=== PATIENT | male | born 1985 | race Caucasian/White ===

== ENCOUNTER → 2017-04-10 | Outpatient (CLI) | payer BC ==
[~2017-04-10] MED LIST: MULT-750 PO
== END ==
LOC: STAR 08:03
PROVIDERS: ATTEND Otolaryngology
DX: Z02.9 Encounter for administrative examinations, unspecified (principal)

== ENCOUNTER 2017-04-18 06:26 | Observation (INO) | payer BC ==
[~2017-04-18] VITALS: Ht 185.4 cm; Wt 95.5 kg
[2017-04-18] MEDS ORDERED: OXYMETAZOLINE NASAL SPRAY 0.05%, 15ML ONE (06:38)
[2017-04-18] MEDS ORDERED: LACTATED RINGERS 1,000 ML IV SCH ×2 (06:50→11:00)
[2017-04-18] MEDS ORDERED: LIDOCAINE 1%, 2ML ONE (06:52)
[2017-04-18 06:56] VITALS: BP 130/80
[2017-04-18] MEDS ORDERED: LIDOCAINE 1%, 2ML SQ PRN (07:30)
[2017-04-18] MEDS ORDERED: MIDAZOLAM 1 MG/ML, 2ML ONE (08:06)
[2017-04-18] MEDS ORDERED: FENTANYL PF 100 MCG/2ML ONE ×3 (08:06→09:29)
[2017-04-18] MEDS ORDERED: SUCCINYLCHOLINE 20 MG/ML, 10ML ONE (08:38)
[2017-04-18] MEDS ORDERED: DEXAMETHASONE 4 MG/ML, 1ML ONE (08:38)
[2017-04-18] MEDS ORDERED: PROPOFOL 10 MG/ML, 20ML ONE (08:38)
[2017-04-18] MEDS ORDERED: ROCURONIUM 10 MG/ML,10ML ONE (08:38)
[2017-04-18] MEDS ORDERED: ONDANSETRON 2MG/ML, 2ML ONE (09:29)
[2017-04-18] MEDS ORDERED: OXYcodone 5 MG/5 ML ORAL.SOL UDC ONE (09:29)
[2017-04-18] MEDS ORDERED: ACETAMINOPHEN 650 MG/20.3 ML UDC ONE (09:29)
[2017-04-18] MEDS ORDERED: DIAZEPAM 5 MG/ML, 2ML IVPush PRN (09:30)
[2017-04-18] MEDS ORDERED: HYDROmorphone 1 MG/ML, 1ML IV PRN (09:30)
[2017-04-18] MEDS ORDERED: ALBUTEROL SULFATE 2.5 MG/3 ML NPPB PRN (09:30)
[2017-04-18] MEDS ORDERED: hydrALAzine 20 MG/ML, 1ML IV PRN (09:30)
[2017-04-18] MEDS ORDERED: METOPROLOL 1 MG/ML, 5ML IV PRN (09:30)
[2017-04-18] MEDS ORDERED: LABETALOL 5MG/ML, 20ML IV PRN (09:30)
[2017-04-18] MEDS ORDERED: EPHEDRINE 50 MG/ML, 1ML IVPush PRN (09:30)
[2017-04-18] MEDS ORDERED: HYDROcodone/APAP 7.5-325MG/15ML UDC PO PRN (09:30)
[2017-04-18] MEDS ORDERED: ONDANSETRON 2MG/ML, 2ML IVPush PRN ×2 (09:30→11:00)
[2017-04-18] MEDS ORDERED: PROMETHAZINE 25 MG/ML, 1ML IV PRN (09:30)
[2017-04-18] MEDS ORDERED: OXYcodone 5 MG/5 ML ORAL.SOL UDC PO PRN (09:30)
[2017-04-18] MEDS ORDERED: MIDAZOLAM 1 MG/ML, 2ML IV PRN (09:30)
[2017-04-18] MEDS ORDERED: MEPERIDINE/PF 25MG/0.5ML IVPush PRN (09:30)
[2017-04-18] MEDS ORDERED: FENTANYL PF 100 MCG/2ML IV PRN (09:30)
[2017-04-18] MEDS ORDERED: ACETAMINOPHEN 325 MG TABLET PO PRN ×2 (09:30→11:00)
[2017-04-18] MEDS: LACTATED RINGERS 1,000 ML IV SCH ×2 (11:00→20:23)
[2017-04-18] MEDS ORDERED: MORPHINE SULFATE 4 MG/ML, 1ML IVPush PRN (11:00)
[2017-04-18] MEDS: IBUPROFEN 600 MG TABLET PO SCH ×3 (11:39→20:23)
[2017-04-18] MEDS: OXYcodone 5 MG/5 ML ORAL.SOL UDC PO PRN ×3 (14:09→20:23)
[2017-04-18 14:25] VITALS: BP 134/80
[2017-04-18 19:00] VITALS: BP 132/76
[2017-04-19 00:05] VITALS: BP 118/78
[2017-04-19] MEDS: OXYcodone 5 MG/5 ML ORAL.SOL UDC PO PRN ×3 (04:29→09:38)
[2017-04-19 04:34] VITALS: BP 121/79
[2017-04-19] MEDS: IBUPROFEN 600 MG TABLET PO SCH (05:52)
[2017-04-19] MEDS: LACTATED RINGERS 1,000 ML IV SCH (06:30)
[2017-04-19 07:48] VITALS: BP 128/78
[2017-04-19] MEDS ORDERED: MULTIVITAMIN 1 TABLET PO SCH (09:00)
[2017-04-19 09:41] VITALS: BP 126/68
[2017-04-19] MEDS ORDERED: OXYC5CAP2 PO (10:20)
== END 2017-04-19 10:31 | disposition home or self-care (01) ==
LOC: OUT 06:26 → 4NOR 10:20 → OUT 10:41 → DCLOUNGE 04-19 10:17
PROVIDERS: ADMIT Otolaryngology; ATTEND Otolaryngology
DX: J35.1 Hypertrophy of tonsils (principal)
CPT/HCPCS: 42826; 88304; G0378; J0330; J1100; J2250; J2405; J2704; J3010; J3490; J7120